=== PATIENT | female | born 1990 | race Caucasian/White ===

== ENCOUNTER → 2020-11-19 | Outpatient (CLI) | payer OTHER ==
--- NOTE | 2020-11-19 14:26 | RAD ---
EXAM: Left foot, 3 views; left ankle, 3 views. HISTORY: Pain. Fall. COMPARISON: None. FINDINGS: 3 views of the left foot and ankle are obtained. There is no fracture, dislocation or sublu xation. There is a corticated ossicle anterior to the proximal metatarsals. There is a benign bone is land within the distal tibial metaphysis. There is ankle soft tissue prominence, possibly due to depe ndent edema or recent injury. There is no osteochondral lesion. IMPRESSION: No acute osseous finding. Electronically signed by: Devora De La Cruz MD (11/19/2020 2:24 PM) [facility]
== END ==
LOC: RAD 14:03
PROVIDERS: ATTEND Nurse Practitioner Family
DX: M25.572 Pain in left ankle and joints of left foot (principal)
CPT/HCPCS: 73610; 73630